=== PATIENT | female | born 1985 | race Two or more races ===

== ENCOUNTER 2023-08-06 08:52 | Inpatient (IN) | payer SELFPAY ==
[~2023-08-06] VITALS: Ht 154.9 cm; Wt 77.3 kg
[2023-08-06] MEDS: SODIUM CHLORIDE 0.9% 1,000 ML IVB ONE (09:09)
[2023-08-06] MEDS: KETOROLAC TROMETH 30 MG/ML 1ML VIAL IV ONE (09:09)
[2023-08-06 09:30] LABS: Basophils # (auto) 0 10 ^3/uL (0-0.2); Basophils % (auto) 0.3 % (0.0-2.0); Eosinophils # (auto) 0.1 10 ^3/uL (0-0.8); Eosinophils % (auto) 1.2 % (0.0-7.0); Hematocrit 38.1 % (36.0-46.0); Hemoglobin 13.2 g/dL (12.2-16.2); Lymphocytes # (auto) 2.6 10 ^3/uL (0.4-5.4); Lymphocytes % (auto) 26.3 % (10.0-50.0); Mean Corpuscular Hemoglobin 31.1 pg (28.0-32.0); Mean Corpuscular Hgb Conc. 34.6 g/dL (32.0-36.0); Mean Corpuscular Volume 89.8 fL (80.0-100.0); Monocytes # (auto) 0.5 10 ^3/uL (0-1.3); Monocytes % (auto) 4.9 % (0.0-12.0); Neutrophils # (auto) 6.6 10 ^3/uL (1.6-8.6); Neutrophils % (auto) 67.3 % (37.0-80.0); Nucleated Red Blood Cells % 0.1 %; Red Blood Cells 4.24 10^6/uL (4.0-5.20); Red Cell Distribution Width 13.2 % (11.8-14.3); White Blood Cell 9.9 10^3/uL (4.4-10.8)
[2023-08-06 09:33] LABS: Chloride 108 mmol/L (98-107); Potassium 3.8 mmol/L (3.5-5.1); Sodium 138 mmol/L (136-145)
[2023-08-06 09:34] LABS: Anion Gap 7 (5-15); Calcium 9.9 mg/dL (8.5-10.1); Carbon Dioxide 23 mmol/L (20-30)
[2023-08-06 09:39] LABS: Blood Urea Nitrogen 9 mg/dL (9-23); Glucose 105 mg/dL (74-106)
[2023-08-06 10:50] LABS: Urine Bacteria FEW /hpf (None Seen); Urine Blood 3+ /uL (Negative); Urine Clarity Turbid (Clear); Urine Color Yellow (Yellow); Urine Mucus FEW (None Seen); Urine Protein, UAD 1+ (Negative); Urine Specific Gravity 1.026 (1.001-1.035); Urine Urobilinogen Normal (Negative); Urine WBC 4 /hpf (0 - 5)
[2023-08-06] MEDS: SODIUM CHLORIDE 0.9% 1,000 ML IV SCH (14:00)
[2023-08-06] MEDS ORDERED: HYDROcodone-ACET 5/325MG TAB PO PRN (14:00)
[2023-08-06] MEDS ORDERED: DOCUSATE SOD 100 MG CAP PO PRN (14:00)
[2023-08-06] MEDS ORDERED: ACETAMINOPHEN 325 MG TAB PO PRN (14:00)
[2023-08-06] MEDS ORDERED: ONDANSETRON HCL 4 MG/2 ML VIAL IV PRN (14:00)
[2023-08-06] MEDS ORDERED: KETOROLAC TROMETH 30 MG/ML 1ML VIAL IV PRN (14:00)
[2023-08-06] MEDS: SODIUM CHLORIDE 0.9% 1,000 ML IV ONE (14:27)
[2023-08-06] MEDS: TAMSULOSIN HYDROCHLORIDE 0.4 MG CAP PO ONE (14:27)
[2023-08-06 18:03] VITALS: BP 121/68; PULSE 71; RESP 19; TEMP 98.1; O2SAT 96
[2023-08-06 18:24] VITALS: O2SAT 97
[2023-08-06 20:05] VITALS: PULSE 71; RESP 16; O2SAT 97
[2023-08-06 21:00] VITALS: BP 115/56; PULSE 71; RESP 16; TEMP 97.6; O2SAT 97
[2023-08-07 01:00] VITALS: BP_SYST 107; BP_SYST 149; BP_DIAS 53; BP_DIAS 57; PULSE 66; PULSE 87; RESP 16; RESP 17; TEMP 98.6; TEMP 98.9; O2SAT 97; O2SAT 99
[2023-08-07 05:00] VITALS: BP 146/65; PULSE 77; RESP 16; TEMP 98.5; O2SAT 95
[2023-08-07 06:17] LABS: Basophils # (auto) 0 10 ^3/uL (0-0.2); Basophils % (auto) 0.5 % (0.0-2.0); Eosinophils # (auto) 0.2 10 ^3/uL (0-0.8); Eosinophils % (auto) 2.9 % (0.0-7.0); Hematocrit 33.6 % (36.0-46.0); Hemoglobin 11.5 g/dL (12.2-16.2); Lymphocytes # (auto) 2.3 10 ^3/uL (0.4-5.4); Lymphocytes % (auto) 32.6 % (10.0-50.0); Mean Corpuscular Hemoglobin 31.2 pg (28.0-32.0); Mean Corpuscular Hgb Conc. 34.2 g/dL (32.0-36.0); Mean Corpuscular Volume 91.3 fL (80.0-100.0); Monocytes # (auto) 0.4 10 ^3/uL (0-1.3); Monocytes % (auto) 5.4 % (0.0-12.0); Neutrophils # (auto) 4.1 10 ^3/uL (1.6-8.6); Neutrophils % (auto) 58.6 % (37.0-80.0); Red Blood Cells 3.67 10^6/uL (4.0-5.20); Red Cell Distribution Width 12.9 % (11.8-14.3)
[2023-08-07 06:33] LABS: Alanine Aminotransferase 12 U/L (7-40); Alkaline Phosphatase 55 U/L (46-116); Anion Gap 2 (5-15); Blood Urea Nitrogen 7 mg/dL (9-23); Calcium 8.5 mg/dL (8.7-10.4); Carbon Dioxide 25 mmol/L (20-30); Chloride 114 mmol/L (98-107); Glucose 96 mg/dL (74-106); Potassium 4.2 mmol/L (3.5-5.1); Sodium 141 mmol/L (136-145)
[2023-08-07 06:34] LABS: Albumin 3.4 g/dL (3.2-4.8); Aspartate Aminotransferase 10 U/L (13-40); Bilirubin, Total 0.5 mg/dL (0.2-1.0); Total Protein 5.6 g/dL (5.7-8.2)
[2023-08-07 08:00] VITALS: O2SAT 97
[2023-08-07 08:57] VITALS: BP 114/66; PULSE 60; RESP 16; TEMP 98.3; O2SAT 97
[2023-08-07] MEDS ORDERED: CEPH500C PO (09:49)
[2023-08-07] MEDS ORDERED: TAMS-35 PO (09:49)
[2023-08-07 12:41] VITALS: BP 110/39; PULSE 61; RESP 16; TEMP 98.4; O2SAT 96
[2023-08-07] MEDS ORDERED: TAMSULOSIN HYDROCHLORIDE 0.4 MG CAP PO SCH (18:00)
== END 2023-08-07 12:30 | disposition home or self-care (01) | DRG 694 ==
LOC: ER 08:52 → OVERFLOW 14:01 → CENTRAL 14:01
PROVIDERS: ADMIT Nurse Practitioner Family; ATTEND Nurse Practitioner Family
DX: N13.2 Hydronephrosis with renal and ureteral calculous obstruction (principal); Z83.3 Family history of diabetes mellitus; Z82.49 Family history of ischemic heart disease and other diseases of the circulatory system
CPT/HCPCS: 36415; 74176; 80048; 80053; 81001; 81025; 85025; G0378; J1885

== ENCOUNTER 2023-08-10 09:18 | Inpatient (IN) | payer SELFPAY ==
[~2023-08-10] VITALS: Ht 157.5 cm; Wt 75.5 kg
[~2023-08-10 09:18] MED LIST: CEPH500C PO; TAMS-35 PO
[2023-08-10 10:28] LABS: Basophils # (auto) 0 10 ^3/uL (0-0.2); Basophils % (auto) 0.1 % (0.0-2.0); Eosinophils # (auto) 0.1 10 ^3/uL (0-0.8); Eosinophils % (auto) 0.5 % (0.0-7.0); Hematocrit 38.1 % (36.0-46.0); Lymphocytes # (auto) 1.4 10 ^3/uL (0.4-5.4); Mean Corpuscular Hemoglobin 30.7 pg (28.0-32.0); Mean Corpuscular Hgb Conc. 34.1 g/dL (32.0-36.0); Mean Corpuscular Volume 90.1 fL (80.0-100.0); Monocytes # (auto) 0.4 10 ^3/uL (0-1.3); Monocytes % (auto) 3.7 % (0.0-12.0); Neutrophils # (auto) 9.8 10 ^3/uL (1.6-8.6); Neutrophils % (auto) 83.7 % (37.0-80.0); Red Blood Cells 4.23 10^6/uL (4.0-5.20); White Blood Cell 11.7 10^3/uL (4.4-10.8)
[2023-08-10 10:31] LABS: Urine Bacteria None Seen /hpf (None Seen)
[2023-08-10 10:35] LABS: Chloride 108 mmol/L (98-107); Sodium 139 mmol/L (136-145)
[2023-08-10 10:36] LABS: Anion Gap 5 (5-15); Calcium 10.2 mg/dL (8.7-10.4); Carbon Dioxide 26 mmol/L (20-30)
[2023-08-10 10:41] LABS: BUN/Creatinine Ratio 10.3 (10.0-20.0); Blood Urea Nitrogen 12 mg/dL (9-23); Glucose 101 mg/dL (74-106)
[2023-08-10 11:00] LABS: Urine Blood Negative /uL (Negative); Urine Clarity Clear (Clear); Urine Color Light-Yellow (Yellow); Urine Protein, UAD Negative (Negative); Urine Urobilinogen Normal (Negative); Urine WBC <1 /hpf (0 - 5); Urine pH 5.5 (5.0-9.0)
[2023-08-10] MEDS: TAMSULOSIN HYDROCHLORIDE 0.4 MG CAP PO ONE (12:26)
[2023-08-10] MEDS: KETOROLAC TROMETH 30 MG/ML 1ML VIAL IV ONE (12:26)
[2023-08-10] MEDS: ONDANSETRON ODT 4 MG TAB PO ONE (12:26)
[2023-08-10] MEDS ORDERED: ACETAMINOPHEN 325 MG TAB PO PRN (13:45)
[2023-08-10] MEDS ORDERED: ONDANSETRON HCL 4 MG/2 ML VIAL IV PRN (13:45)
[2023-08-10] MEDS ORDERED: DOCUSATE SOD 100 MG CAP PO PRN (13:45)
[2023-08-10] MEDS: SODIUM CHLORIDE 0.9% 1,000 ML IV ONE (14:08)
[2023-08-10] MEDS: SODIUM CHLORIDE 0.9% 1,000 ML IV SCH (14:09)
[2023-08-10] MEDS: cefTRIAXone 1GM/50ML D5W 50 ML IV ONE (14:55)
[2023-08-10 16:03] VITALS: PULSE 78; RESP 22; O2SAT 95
[2023-08-10 21:53] VITALS: BP 132/72; PULSE 68; RESP 16; TEMP 98; O2SAT 98
[2023-08-10] MEDS: HYDROcodone-ACET 5/325MG TAB PO PRN (22:32)
[2023-08-10] MEDS: MANNITOL FTV 25% 12.5 GM/50 ML 50 ML IV ONE (22:35)
[2023-08-11] VITALS (8 sets, daily range): BP systolic 103–135; BP diastolic 57–82; PULSE 56–80; RESP 16–22; TEMP 97.6–98.9; O2SAT 95–99
[2023-08-11 06:42] LABS: Alanine Aminotransferase 11 U/L (7-40); Albumin 3.9 g/dL (3.2-4.8); Alkaline Phosphatase 65 U/L (46-116); Anion Gap 4 (5-15); Aspartate Aminotransferase 11 U/L (13-40); BUN/Creatinine Ratio 10.5 (10.0-20.0); Bilirubin, Total 0.4 mg/dL (0.2-1.0); Blood Urea Nitrogen 11 mg/dL (9-23); Calcium 8.9 mg/dL (8.5-10.1); Carbon Dioxide 26 mmol/L (20-30); Chloride 111 mmol/L (98-107); Glucose 99 mg/dL (74-106); Potassium 4.2 mmol/L (3.5-5.1); Sodium 141 mmol/L (136-145); Total Protein 6.1 g/dL (5.7-8.2)
[2023-08-11 06:55] LABS: Basophils # (auto) 0 10 ^3/uL (0-0.2); Basophils % (auto) 0.3 % (0.0-2.0); Eosinophils # (auto) 0.2 10 ^3/uL (0-0.8); Eosinophils % (auto) 2.3 % (0.0-7.0); Hematocrit 34.8 % (36.0-46.0); Hemoglobin 11.9 g/dL (12.2-16.2); Lymphocytes # (auto) 2.2 10 ^3/uL (0.4-5.4); Lymphocytes % (auto) 29.9 % (10.0-50.0); Mean Corpuscular Hgb Conc. 34.3 g/dL (32.0-36.0); Mean Corpuscular Volume 90.4 fL (80.0-100.0); Monocytes # (auto) 0.5 10 ^3/uL (0-1.3); Monocytes % (auto) 6.3 % (0.0-12.0); Neutrophils # (auto) 4.5 10 ^3/uL (1.6-8.6); Neutrophils % (auto) 61.2 % (37.0-80.0); Nucleated Red Blood Cells % 0.1 %; Red Blood Cells 3.84 10^6/uL (4.0-5.20); Red Cell Distribution Width 13.1 % (11.8-14.3); White Blood Cell 7.3 10^3/uL (4.4-10.8)
[2023-08-11 08:58] LABS: INR 1.06 (0.9-1.15); Partial Thromboplastin Time 29.1 SEC (24.5-34.5); Prothrombin Time 11.2 sec (9.3-11.8)
[2023-08-11] MEDS: cefTRIAXone 1GM/50ML D5W 50 ML IV SCH (09:50)
[2023-08-11] MEDS: TAMSULOSIN HYDROCHLORIDE 0.4 MG CAP PO SCH (09:51)
[2023-08-12] VITALS (9 sets, daily range): BP systolic 115–149; BP diastolic 58–83; PULSE 54–84; RESP 12–22; TEMP 97.8–98.3; O2SAT 93–100
[2023-08-12] MEDS ORDERED: ONDANSETRON HCL 4 MG/2 ML VIAL ONE (14:37)
[2023-08-12] MEDS ORDERED: KETAMINE 50mg/ML 1ml syringe ONE (14:37)
[2023-08-12] MEDS ORDERED: GLYCOPYRROLATE 0.2 MG/ML 1ML VIAL ONE (14:37)
[2023-08-12] MEDS ORDERED: PROPOFOL 10 MG/ML 20 ML IV ONE (14:37)
[2023-08-12] MEDS ORDERED: fentaNYL CITRATE 100 MCG/2 ML VL ONE (14:37)
[2023-08-12] MEDS ORDERED: DexAMETHasone SOD PHOS 10MG/1ML VIAL INJ ONE (14:37)
[2023-08-12] MEDS ORDERED: MIDAZOLAM HCL 2MG/2ML 2ml VIAL (1mg/ml) ONE (14:54)
[2023-08-12] MEDS ORDERED: HYDROmorphone HCL 2 MG/ML VL/or syr IV PRN (15:15)
[2023-08-12] MEDS: ONDANSETRON HCL 4 MG/2 ML VIAL IV ONE (15:15)
[2023-08-12] MEDS ORDERED: MEPERIDINE HCL (50 MG/ML) 1 ML VIAL ONE (15:29)
[2023-08-13 01:00] VITALS: BP_SYST 104; BP_SYST 120; BP_DIAS 51; BP_DIAS 60; PULSE 54; PULSE 66; RESP 18; RESP 20; TEMP 98.4; TEMP 98.6; O2SAT 100; O2SAT 95
[2023-08-13 05:00] VITALS: BP 107/37; PULSE 67; RESP 19; TEMP 98.6; O2SAT 97
[2023-08-13 07:24] LABS: Basophils # (auto) 0 10 ^3/uL (0-0.2); Eosinophils # (auto) 0 10 ^3/uL (0-0.8); Hematocrit 35.2 % (36.0-46.0); Hemoglobin 12.2 g/dL (12.2-16.2); Lymphocytes # (auto) 1.4 10 ^3/uL (0.4-5.4); Mean Corpuscular Hemoglobin 31.5 pg (28.0-32.0); Mean Corpuscular Hgb Conc. 34.7 g/dL (32.0-36.0); Mean Corpuscular Volume 90.8 fL (80.0-100.0); Monocytes # (auto) 0.3 10 ^3/uL (0-1.3); Monocytes % (auto) 2.8 % (0.0-12.0); Neutrophils # (auto) 8.1 10 ^3/uL (1.6-8.6); Neutrophils % (auto) 83.2 % (37.0-80.0); Red Blood Cells 3.88 10^6/uL (4.0-5.20); Red Cell Distribution Width 12.9 % (11.8-14.3); White Blood Cell 9.7 10^3/uL (4.4-10.8)
[2023-08-13 07:33] LABS: Anion Gap 7 (5-15); Carbon Dioxide 25 mmol/L (20-30); Chloride 108 mmol/L (98-107); Potassium 4.1 mmol/L (3.5-5.1); Sodium 140 mmol/L (136-145)
[2023-08-13 07:35] LABS: Calcium 9.6 mg/dL (8.5-10.1)
[2023-08-13 07:39] LABS: Glucose 126 mg/dL (74-106)
[2023-08-13 07:41] LABS: BUN/Creatinine Ratio 9.1 (10.0-20.0); Blood Urea Nitrogen 8 mg/dL (9-23)
[2023-08-13 08:26] VITALS: BP 109/53; PULSE 57; RESP 20; TEMP 98.2; O2SAT 95
[2023-08-13 10:44] VITALS: BP 109/53; PULSE 57; RESP 20; TEMP 98.2; O2SAT 95
== END 2023-08-13 11:35 | disposition home or self-care (01) | DRG 661 ==
LOC: ER 09:18 → OVERFLOW 13:46 → WEST WING 22:10
PROVIDERS: ADMIT Internal Medicine; ATTEND Internal Medicine
PROC: 0TC63ZZ Extirpation of Matter from Right Ureter, Percutaneous Approach (ICD-10-PCS; principal; 2023-08-12 15:15)
DX: N13.2 Hydronephrosis with renal and ureteral calculous obstruction (principal); N17.9 Acute kidney failure, unspecified; D72.829 Elevated white blood cell count, unspecified
CPT/HCPCS: 36415; 71045; 74176; 76775; 80048; 80053; 81001; 84702; 85025; 85610; 85730; 86850; 86900; 86901; 87081; 96361; 96365; 96375; G0378; J1100; J1885; J2250; J2405; J2704; Q0162